=== PATIENT | male | born 1945 | race Caucasian/White ===

== ENCOUNTER 2018-09-12 07:54 | Inpatient (IN) ==
--- NOTE | 2018-09-11 22:18 | Discharge Summary ---
<Alexandria Chong L - Last Filed: 09/12/18 14:40> Orders not resulted at time of discharge: Pending orders 09/12/18 00:01 XR shoulder complete LT [XR] Routine H/H [Hemoglobin and Hematocrit] [HEME] Routine Date of Encounter: 09/12/18 Time of Encounter: 14:42 - Discharge Diagnosis (1) Status post reverse total arthroplasty of left shoulder Priority: Primary Status: Acute Comments: Opsite placed. Keep dressing intact until first follow up appointment. If > 50% saturated, notify office, remove dressing and place appropriate dressing back in place. Leave Zipline intact. Opsite dressing is water resistant, not water- proof. OK to shower, but do not get dressing wet. PT/OT. NWB to affected upper extremity. Follow Shoulder Precautions x 6 weeks. Stay in brace during activity and at night. Remove brace during exercises. ICE and elevate extremity frequently throughout the day. (2) Rotator cuff arthropathy of left shoulder Priority: Primary Status: Acute (3) CAD (coronary artery disease) of artery bypass graft Priority: Secondary Status: Chronic Qualifiers: [place] vs. transplanted heart: unspecified whether [place] or transplanted heart Associated angina: angina presence unspecified Qualified Code(s): I25.810 - Atherosclerosis of coronary artery bypass graft(s) without angina pectoris (4) HLD (hyperlipidemia) Priority: Secondary Status: Chronic Qualifiers: Hyperlipidemia type: unspecified Qualified Code(s): E78.5 - Hyperlipidemia, unspecified (5) HTN (hypertension) Priority: Secondary Status: Chronic Qualifiers: Hypertension type: essential hypertension Qualified Code(s): I10 - Essential (primary) hypertension (6) LBBB (left bundle branch block) Priority: Secondary Status: Chronic - Hospital Course Hospital course: Mr. Garcia is a 73 year old male s/p Left Reverse Spencer TSR. Vitals and labs reviewed: Short CBC 09/12/18 Range/Units 11:46 Hgb 14.2 (12.9-16.9) g/dL Hct 42.1 (37.5-50.1) % Vital Signs Temp Pulse Resp BP Pulse Ox 09/12/18 13:07 96.4 F L 81 15 159/98 92 09/12/18 12:35 95.9 F L 71 16 148/91 93 09/12/18 12:05 68 14 154/95 93 09/12/18 11:49 72 14 146/88 93 09/12/18 11:38 97.3 F L 79 16 143/91 93 09/12/18 11:28 75 14 143/92 94 09/12/18 11:18 82 14 146/89 98 09/12/18 11:08 97.2 F L 82 14 134/90 99 09/12/18 09:39 70 18 148/92 96 09/12/18 09:22 72 150/92 96 09/12/18 09:06 69 16 171/99 98 09/12/18 08:24 98.7 F 67 18 147/81 95 Intake and Output 09/11/18 09/12/18 09/12/18 23:59 07:59 15:59 Intake Total 20 / 20 Output Total 50 / 50 Balance -30 / -30 Intake: IV Fluids 20 / 20 Ancef Syringe 2,000 MG/20 ML 2, 20 / 20 000 mg In 20 ml @ 200 mls/hr IVPB PREOP ONE Rx#:[id number] Output: Estimated Blood Loss 50 / 50 Other: Weight 89.358 kg 89.358 kg Patient Weight 09/12/18 23:59 Weight 89.358 kg Pain control: Adequate, nerve block intact Participating in PT. All questions and concerns addressed. Educated on use of incentive spirometer, ambulation, and hydration. Patient educated on post-operative restrictions and care. D/C plan: Home with OP. Stable - Time Spent with Patient Total time spent providing and/or coordinating discharge services: - Discharge Medications Home Medications: Metoprolol XL (24 HR) Succ [Toprol Xl] 50 mg PO QPM 02/03/16 [History] Atorvastatin [Lipitor] 40 mg PO QPM 08/25/17 [History] Meloxicam 7.5 mg PO QPM 08/25/17 [History] OxyCODONE Immed Rel [Roxicodone 5 MG] 5 mg PO Q6HR PRN 7 Days #28 tablet 09/11/18 [Rx] Allergies/Adverse Reactions: Allergy/AdvReac Type Severity Reaction Status Date / Time No Known Allergies Allergy Verified 09/12/18 08:48 Primary care physician: PCP NONE - Patient Status Disposition: Home, Self-Care Condition: Good Functional capacity at discharge: independent ambulation Overall status at discharge: patient is progressing back to baseline - Discharge Instructions Instructions: Joint Replacement Surgery (DC) Follow Up With: Alexandria Chong PAC [Physician Computer Training Specialist] - 09/22/18 8:30 am NONE,PCP [Primary Care Provider] - Additional Instructions: Discharge Instructions: Total Shoulder Please call [facility] ([phone]), your Primary Care Physician, or report to the Emergency Room if you have any of the following symptoms: Nausea, vomiting, fever greater that 101.5, swelling, chest pain, shortness of breath, increased pain/redness/drainage/odor for your incision site, numbness/tingling, or any other concerning symptoms. ACTIVITY: Always keep your arm in the sling. Do not raise your arm away from your body. Do not use your arm to help with getting in or out of bed. No weight bearing permitted. Only perform those exercises given to you by your therapist. Incentive Spirometer 10 times an hour. MEDICATIONS: Upon discharge resume your home medications. Take all the medications as prescribed. Take a stool softener if taking narcotic pain medications. Stool softeners are only effective if you drink enough fluids. Drink 6-8 glass of water or fluids a day, unless this is not allowed for another health problem. Despite using stool softeners, if you haven't had a bowel movement in 3 days, please switch to a gentle laxative. Gentle laxatives are sold over the counter. You should have a bowel movement within 24 hours, if not call the office. You will be discharged from the hospital with a prescription for pain medication. You are encouraged to decrease the use of narcotic pain medication as tolerated. Should you require a refill, please call the office. [facility] prescribes narcotic pain medication for only 4-6 weeks after surgery. If you require pain medication beyond this time period, you may be referred to your Primary Care Physician or to the Pain Clinic for further evaluation. Plan ahead for refills on pain medication as many narcotics either need to be picked up at the office or mailed. It is best to call 48-72 hours in advance of needing a prescription refill so you don't run out of medication. To help control the post-operative pain, you may take NSAIDs (Aleve,Advil, Motrin, Ibuprofen, Naprosyn) or Tylenol as prescribed on the bottle in addition to the pain medication. WOUND CARE: Leave the dressing on for 7-10 days. You may change the dressing if it becomes saturated greater than 50%. Do not get the dressing wet at anytime. Wash your hands with antibacterial soap, rinse and dry prior to any wound care. If you have joni the visiting nurse or rehab facility can remove the stapes 10-14 days after surgery and place steri-strips across the wound. Leave the steri-strips in place until they fall off on their own. You may let water from the shower run on top of the steri-strips. If you do not have a visiting nurse or rehab facility, you will need to return to the office at 10-14 days for the joni to be removed. If you have itching or redness around the dressing call the office. FOLLOW-UP: Please follow up with your surgeon in the orthopedic clinic, as scheduled - Diet and Activity Activity: as per physical therapy <Lisa Carpenter - Last Filed: 09/13/18 13:13> Orders not resulted at time of discharge: Pending orders 09/12/18 08:40 US anesthesia pain block [US] Routine 09/12/18 10:37 Surgical Pathology [PTH] Routine - Discharge Diagnosis (1) Rotator cuff arthropathy of left shoulder Priority: Primary Status: Acute (2) Status post reverse total arthroplasty of left shoulder Priority: Primary Status: Acute (3) Status post total left knee replacement Priority: Secondary Status: Acute (4) Arthritis of knee Priority: Secondary Status: Chronic (5) Arthritis of left knee Priority: Secondary Status: Chronic (6) CAD (coronary artery disease) of artery bypass graft Priority: Secondary Status: Chronic Qualifiers: [place] vs. transplanted heart: unspecified whether [place] or transplanted heart Associated angina: angina presence unspecified Qualified Code(s): I25.810 - Atherosclerosis of coronary artery bypass graft(s) without angina pectoris (7) HLD (hyperlipidemia) Priority: Secondary Status: Chronic Qualifiers: Hyperlipidemia type: unspecified Qualified Code(s): E78.5 - Hyperlipidemia, unspecified (8) HTN (hypertension) Priority: Secondary Status: Chronic Qualifiers: Hypertension type: essential hypertension Qualified Code(s): I10 - Essential (primary) hypertension (9) LBBB (left bundle branch block) Priority: Secondary Status: Chronic - Hospital Course Hospital course: Mr. Garcia is a 73 year old male s/p Left Reverse Spencer TSR 09/12/18. He had an uneventful hospital course and was discharged by Dr. Walker on day of surgery. He was stable at time of discharge. - Time Spent with Patient Total time spent providing and/or coordinating discharge services: Date of admission: 09/12/18 11:42 Primary care physician: PCP NONE Consults: 09/12/18 12:05 Consult to Occupational Therapy [CONS] Routine Comment: post shoulder surgery Reason for Consult: post shoulder surgery Does patient have active BEDREST order?: No Is patient medically & hemodynamically stable?: Yes RT Post Op Consult [CONS] Routine 09/12/18 12:17 Consult to Scenic Designer [CONS] Routine Reason for SW Consult: s/p L TSR reverse Discharging clinician: Cabrera Walker Anticipated date of discharge: 09/12/18 Labs on day of discharge: Vital Signs Temp Pulse Resp BP Pulse Ox 09/12/18 15:40 97.9 F 83 17 148/83 93 09/12/18 14:10 96.5 F L 83 14 154/93 94 - Impressions ITS Impressions Shoulder X-Ray 09/12/18 00:01 IMPRESSION: Reversed left total shoulder arthroplasty with expected postsurgical changes. No acute complication. D/ / Humberto Roberson MD / Humberto Roberson MD Interpreting Provider: Humberto Roberson MD - Patient Status Functional capacity at discharge: independent ambulation Overall status at discharge: patient is progressing back to baseline - Diet and Activity Activity: as per physical therapy Diet: advance to your usual diet
[2018-09-12] MEDS ORDERED: Famotidine 20 MG/2 ML VIAL IVP ONE (08:17)
[2018-09-12] MEDS ORDERED: Pregabalin 75 MG CAPSULE PO ONE (08:18)
[2018-09-12] MEDS ORDERED: Acetaminophen IV 1,000 MG/100 ML INFUS..BTL IVPB ONE (08:18)
--- NOTE | 2018-09-12 08:23 | Anesthesia Evaluation PreOp ---
Date of Encounter: 09/12/18 Time of Encounter: 08:21 - Past History Planned Operation: L-reverse TSR Cardiac History: HTN, Hyperlipidemia, Cardiac Stent (stents x 1) Pulmonary History: Denies Any Significant HX DINING CAR CONDUCTOR History: Denies Any Significant HX Other Medical History: Denies Any Significant HX Anesthesia History: No Prior Anesthetic Complications, Past Anesthesia (Katie, cardiac stents x 2, B-knee scopes, CTR, R-TKR, L-elbow, L-TKR 08/2017) Alcohol Use: none Drug use: none Medications and Allergies Metoprolol XL (24 HR) Succ [Toprol Xl] 50 mg PO QPM 02/03/16 [History] Aspirin Enteric Coated [Aspirin EC] 81 mg PO DAILY 08/25/17 [History] Atorvastatin [Lipitor] 40 mg PO QPM 08/25/17 [History] Ferrous Sulfate 325 mg PO DAILY 08/25/17 [History] Meloxicam 7.5 mg PO QPM 08/25/17 [History] OxyCODONE Immed Rel [Roxicodone 5 MG] 5 mg PO Q6HR PRN 7 Days #28 tablet 09/11/18 [Rx] Allergy/AdvReac Type Severity Reaction Status Date / Time No Known Allergies Allergy Verified 09/05/18 11:06 - Meds/Allergy Pre-op Review Medications Reviewed: Yes Allergies Reviewed: Yes Beta Blockers on Current Med List: Yes (Metoprolol) If Beta Blockers taken, Date/Time (Last Dose taken): 09/12/2018 @ 0855 Anesthesia Results - Labs Laboratory Tests 09/05/18 09/05/18 09/05/18 11:06 11:06 11:06 WBC 5.4 Hgb 15.2 Hct 46.2 Plt Count 177 PT 11.7 INR 1.0 Sodium 137 Potassium 4.4 Chloride 102 Carbon Dioxide 29 Creatinine 1.00 Est GFR (Non-Af Amer) > 60 - Imaging EKG: report reviewed (78bpm - SINUS RHYTHM LEFT BUNDLE BRANCH BLOCK Electronically Signed On 08-19-2017 21:42:52 EDT by Brock Simpson MD) Anesthesia Exam O2 Sat Height 1.75 m Weight 89.358 kg O2 Sat by Pulse Oximetry 95 Vital Signs Temp Pulse Resp BP Pulse Ox 98.7 F 67 18 147/81 95 09/12/18 08:24 09/12/18 08:24 09/12/18 08:24 09/12/18 08:24 09/12/18 08:24 Height: 5'9" Weight: 197# BMI = 29 NPO (# of Hours): MNoc - HEENT Pupil (Motor): Pupils equal, EOMI Mallampati: III Teeth: Normal Oral Opening: Greater than 3 - DINING CAR CONDUCTOR LOC: Oriented DINING CAR CONDUCTOR Motor: Normal RUE, Normal LUE, Normal RLE, Normal LLE, Normal Face DINING CAR CONDUCTOR Sensory: Normal: RUE, LUE, RLE, LLE, Face - Cardiac Rhythm: Regular Murmur: None - Pulmonary Breath Sounds: bilateral Clear Respiratory Effort: Symmetrical Anesthesia Assess/Plan ASA Score: 3 (CAD, HTN, Chol, Arthritis,) Modified [place] Scale for Level of Consciousness: Cooperative, oriented, and tranquil Anesthetic Plan: General, Regional Monitoring Plan: Standard Monitors Recovery Plan: PACU Anes Supervising Prov Stmt: Pt seen/evaluated, R&B discussed, questions answered and consent obtained. Cal Mitchell MD
[2018-09-12] MEDS ORDERED: CeFAZolin Syr 2,000MG/20 ML 2,000 MG/20 ML SYRINGE IVPB ONE (08:31)
[2018-09-12] MEDS ORDERED: Bupivacaine/Clonidine Syringe 1 EACH SYRINGE ONE (08:41)
--- NOTE | 2018-09-12 08:43 | History & Physical Report ---
Date of Encounter: 09/12/18 Time of Encounter: 08:43 24 Hour HP Update - Instructions Instructions: If the History and Physical is less than 30 days old and was completed prior to A.M. admission and or procedure and has NOT been updated on calendar day of procedure please complete this update prior to performing procedure. - Update Patient reports changes in Medical Condition: No Changes in examination, assessment, or condition: No Changes in Medication: No Preop tests/diagnostics Reviewed: Yes Surgery Remains Indicated: Yes Consent for Planned Operative Procedure(s) Verified: Yes - Pre-Operative Checklist Preoperative Checklist Indicated: No Prophylactic Antibiotic Ordered: Yes Is VTE Prophylaxis Indicated?: Yes
[2018-09-12] MEDS ORDERED: Ringers Solution, Lactated 1,000 ML IVC SCH ×2 (08:45→12:05)
[2018-09-12] MEDS ORDERED: *HR* FentaNYL (PF) 100 MCG/2 ML VIAL ONE (08:46)
[2018-09-12] MEDS ORDERED: *HR* Propofol 200 MG/20 ML VIAL IVP ONE (08:46)
[2018-09-12] MEDS ORDERED: *HR* Midazolam HCl 2 MG/2 ML VIAL ONE (08:46)
[2018-09-12] MEDS ORDERED: *HR* OxyCODONE Immed Rel 5 MG TABLET PO PRN ×2 (08:50→12:05)
[2018-09-12] MEDS ORDERED: *HR* Promethazine 25 MG/ML VIAL IVP PRN (08:50)
[2018-09-12] MEDS ORDERED: *HR* HYDROmorphone (PF) 1 MG/ML SYRINGE IVP PRN (08:50)
[2018-09-12] MEDS ORDERED: Metoprolol XL (24 HR) Succ 50 MG TAB.ER.24H PO ONE (09:00)
--- NOTE | 2018-09-12 09:33 | Anesthesia Procedures ---
Date of Encounter: 09/12/18 Time of Encounter: Procedures: Anesthesia - Nerve Block Procedure Date: 09/12/18 Time: Surgical Procedure: left shoulder arthroscopy Checklist: Correct Patient Identifier, Correct procedure, History checked Correct side: Left Monitor Applied: BP, Pulse Oximetry Supplemental Oxygen via Nasal Cannula (L/min): 2 Sedation: Versed (mg): 2 Sedation: Fentanyl (mcg): 50 Indication: Post Op Analgesia Pre-op Neuro Deficits: No Catheter placed: No Sterile Technique: Yes Ultrasound used: Yes Anatomy identified: Yes Visual spread of Local: Yes Neuro Stimulation: No Blood on Needle Aspiration: No Smooth Injection of Local: No Pain with Injection of Local: No Prep: Chlorhexadine Needle: 22 x 50 mm Stimuplex Local: 0.25% Bupivicaine w/Clonidine 20 mcg/cc, Ropivacaine Volume (cc): 50 Number of Attempts: 1 Complications: None/effective block Vitals: vss though procedure, block per request
[2018-09-12] MEDS ORDERED: Ethanol\\Acetic Acid\\Na Ace\\Ben 1,000 ML IRRIG.SOLN IR ONE (09:41)
[2018-09-12] MEDS ORDERED: Ondansetron 4 MG/2 ML VIAL ONE (10:26)
[2018-09-12] MEDS ORDERED: *HR* Rocuronium Bromide 50 MG/5 ML VIAL ONE (10:26)
[2018-09-12] MEDS ORDERED: Dexamethasone 4 MG/ML VIAL ONE (10:26)
[2018-09-12] MEDS ORDERED: Lidocaine -MPF 4% 5 ML AMPUL ONE (10:26)
[2018-09-12] MEDS ORDERED: Lidocaine -MPF 2% 2 ML VIAL ONE (10:26)
[2018-09-12] MEDS ORDERED: *HR* PHENYLEPHRINE 1,000 MCG/10 ML SYRINGE IVP ONE (10:26)
[2018-09-12] MEDS ORDERED: *HR* Succinylcholine 200 MG/10 ML VIAL IVP ONE (10:26)
--- NOTE | 2018-09-12 10:47 | Orthopedic Operative Note ---
Date of procedure: 09/12/18 Pre-op diagnosis: Left shoulder cuff tear arthropathy Post-op diagnosis: same Procedure: Procedure: Total Shoulder Replacment Reverse, left Estimated blood loss: 50 cc Hardware: Metal and polyethylene replacement: Arthrex 24, +2 , 30 mm screw glenoid baseplate, 2 4.5 screws. 2 5.5 screw, 42+4 glenosphere, 13 apex humeral stem, poly insert 6 Exam Under anesthesia: Full motion no instability Procedural Notes: Irreparable tear supraspinatus tendon. Operative procedure: The patient was brought to the operating room and placed on the operating room table. After general anesthesia was administered the operative shoulder was examined. Findings were noted. The patient was placed in the modified beachchair position. All pressure points were padded appropriately. And the head was stabilized in the neutral position. The operative extremity was prepped and draped in the sterile surgical fashion. The patient received IV antibiotics prior to skin incision. A standard deltopectoral approach was made to the operative shoulder. Incision was made to the skin and subcutaneous tissue,hemo stasis was obtained with Bovie cautery. Using careful blunt dissection the cephalic vein was identified and mobilized medially. The deltopectoral interval was developed and the clavipectoral fascia was incised. The subscap was released off the lesser tuberosity and tagged with #2 FiberWire suture subscap was irreparable. The humerus was dislocated patient noted to have irreparable tear supraspinatus tendon, and the humeral cut was made along the anatomic neck. Anterior and posterior Bankart retractors were placed to expose the glenoid. The glenoid guide was seated and the centering hole was made. It was reamed with the appropriate reamer. The 24, +2, 30 mm screw, baseplate was seated and secured with (2) 4.5 screws and 2 5.5 screw. The baseplate was irrigated and dried and the 42+4 Glenosphere was seated and secured with the Schulz taper. The Schulz taper was tested and found to be secure the humerus was redislocated and prepared with the diaphyseal reamers, followed by a broaching process up to the appropriate size 13 apex in the patient's anatomic version. The metaphyseal reamer was then utilized. Trial reduction found the shoulder to be relocatable. Trial components were removed and 13 apex stem was impacted in place in the patient's anatomic version. Trial reduction found the shoulder to be relocatable and stable with the appropriate 6 Dorie. Trial component was removed and the real implant was seated and secured the shoulder was reduced. The shoulder had excellent motion and excellent stability and no evidence of dislocation. The deep tissue was irrigated with pulse irrigation. The PA close the shoulder. The deltopectoral interval was closed with a running #1 PDS suture, subcutaneous tissue was irrigated and closed with 0 PDS suture, the skin was closed with Dermabond. The patient was placed in a sterile dressing, abduction brace and extubated. The patient was then transferred to the recovery room in stable condition. Anesthesia: GETArya Surgeon: Cabrera Walker Was there an materials assistant present: Yes Position Classification Specialist: Alexandria Chong Estimated blood loss (cc): 50 Condition: stable Disposition: PACU
--- NOTE | 2018-09-12 11:40 | Anesthesia Evaluation Post Op ---
Date of Encounter: 09/12/18 Time of Encounter: 11:38 - Vital Signs Vital Signs: Vital Signs/O2 Sat, Most Current Temp Pulse Resp BP Pulse Ox 97.2 F L 75 14 143/92 94 09/12/18 11:08 09/12/18 11:28 09/12/18 11:28 09/12/18 11:28 09/12/18 11:28 - Lungs Lungs: Clear Ascult./Percussion - Airway Airway: Non-obstructed - Cardiovascular Regular Rate - Mental Status Mental Status: Alert & Oriented, Answers Appropriately - Pain Pain Scale: 3 (burning) Pain Scale used: Numeric (1 - 10) - Nausea Vomiting Nausea Vomiting: Not Present - Hydration Hydration: NPO - Discharge PostOp Status: Transfer Patient to floor (awake, VSS, minimal pain, no anesthetic complications)
[2018-09-12] MEDS ORDERED: Sennosides 8.6 MG TABLET PO PRN (12:05)
[2018-09-12] MEDS ORDERED: traMADol 50 MG TABLET PO PRN (12:05)
[2018-09-12] MEDS ORDERED: Temazepam 15 MG CAPSULE PO PRN (12:05)
[2018-09-12] MEDS ORDERED: Ondansetron 4 MG/2 ML VIAL IVP PRN (12:05)
[2018-09-12] MEDS ORDERED: MOM Conc 10 ML UD.LIQ PO PRN (12:05)
[2018-09-12] MEDS ORDERED: *HR* OxyCODONE/APAP 5/325 TABLET PO PRN (12:05)
[2018-09-12] MEDS ORDERED: Naloxone 0.4 MG/ML INJ IVP PRN (12:05)
[2018-09-12 12:19] LABS: Hematocrit 42.1 % (37.5-50.1); Hemoglobin 14.2 g/dL (12.9-16.9)
[2018-09-12 15:54] VITALS: BP 148/83
[2018-09-12] MEDS ORDERED: Metoprolol XL (24 HR) Succ 50 MG TAB.ER.24H PO SCH (18:00)
[2018-09-12] MEDS ORDERED: *HR* Enoxaparin 30 MG/0.3 ML SYRINGE SQ SCH ×2 (18:00)
== END 2018-09-12 19:07 | disposition home or self-care (01) | DRG 483 ==
LOC: SAMDAY 07:54 → 3NENU 11:42
PROVIDERS: ADMIT Orthopaedic Surgery; ATTEND Orthopaedic Surgery

== ENCOUNTER 2019-08-07 06:10 | Inpatient (IN) ==
[2019-08-07] MEDS ORDERED: CeFAZolin Syr 2,000MG/20 ML 2,000 MG/20 ML SYRINGE IVPB ONE (06:28)
--- NOTE | 2019-08-07 06:46 | History & Physical Report ---
Date of Encounter: 08/07/19 Time of Encounter: 06:45 24 Hour HP Update - Instructions Instructions: If the History and Physical is less than 30 days old and was completed prior to A.M. admission and or procedure and has NOT been updated on calendar day of procedure please complete this update prior to performing procedure. - Update Patient reports changes in Medical Condition: No Changes in examination, assessment, or condition: No Changes in Medication: No Preop tests/diagnostics Reviewed: Yes Surgery Remains Indicated: Yes Consent for Planned Operative Procedure(s) Verified: Yes - Pre-Operative Checklist Preoperative Checklist Indicated: No Prophylactic Antibiotic Ordered: Yes Is VTE Prophylaxis Indicated?: Yes
[2019-08-07] MEDS ORDERED: Lidocaine -MPF 2% 2 ML VIAL ONE (07:19)
[2019-08-07] MEDS ORDERED: Ethanol\\Acetic Acid\\Na Ace\\Ben 1,000 ML IRRIG.SOLN IR ONE (07:28)
[2019-08-07] MEDS: Ringers Solution, Lactated 1,000 ML IVC SCH ×2 (07:31→09:41)
[2019-08-07] MEDS ORDERED: *HR* FentaNYL (PF) 100 MCG/2 ML VIAL ONE (07:33)
[2019-08-07] MEDS ORDERED: *HR* Propofol 200 MG/20 ML VIAL IVP ONE (07:34)
[2019-08-07] MEDS ORDERED: *HR* Midazolam HCl 2 MG/2 ML VIAL ONE (07:34)
[2019-08-07] MEDS ORDERED: *HR* Succinylcholine 200 MG/10 ML VIAL IVP ONE (07:40)
[2019-08-07] MEDS ORDERED: *HR* Rocuronium Bromide 50 MG/5 ML VIAL ONE (07:40)
[2019-08-07] MEDS ORDERED: Lidocaine HCL 4 ML Topical Solution (Laryng-O-Jet Kit Sterile Pak) TP ONE (07:41)
[2019-08-07] MEDS ORDERED: Bupivacaine/EPI 1:200k 0.5%PF 30 ML VIAL ONE (07:43)
[2019-08-07] MEDS ORDERED: MethylPREDNISolone Acet(DEPOT) 80 MG/ML VIAL ONE (07:43)
[2019-08-07] MEDS ORDERED: Bupivacaine/EPI 1:200k 0.5%PF 10 ML VIAL ONE (07:44)
--- NOTE | 2019-08-07 07:45 | Anesthesia Evaluation PreOp ---
Date of Encounter: 08/07/19 Time of Encounter: 07:42 - Past History Planned Operation: Right Total Shoulder Cardiac History: HTN, Hyperlipidemia, Cardiac Stent (strent x 1 in 2001) Pulmonary History: Denies Any Significant HX QUALITY ASSURANCE ENGINEER History: Denies Any Significant HX Other Medical History: Denies Any Significant HX Anesthesia History: No Prior Anesthetic Complications, Past Anesthesia Alcohol Use: none Drug use: none Medications and Allergies Metoprolol XL (24 HR) Succ [Toprol Xl] 50 mg PO DAILY 02/03/16 [History] Atorvastatin [Lipitor] 40 mg PO DAILY 08/25/17 [History] Aspirin [Lo-Dose Aspirin EC] 81 mg PO DAILY 08/07/19 [History] Cetirizine HCl [Zyrtec] 10 mg PO DAILY PRN 08/07/19 [History] Allergy/AdvReac Type Severity Reaction Status Date / Time No Known Allergies Allergy Verified 08/07/19 07:11 - Meds/Allergy Pre-op Review Medications Reviewed: Yes Allergies Reviewed: Yes Beta Blockers on Current Med List: Yes If Beta Blockers taken, Date/Time (Last Dose taken): 08/07/2019 at 0400 Anesthesia Results - Labs Laboratory Tests 07/19/19 07/19/19 07/19/19 09:48 09:48 09:48 WBC 5.1 Hgb 15.0 Hct 44.5 Plt Count 174 PT 12.2 H INR 1.1 APTT 31.8 Sodium 134 L Potassium 4.2 BUN 8 Creatinine 0.91 - Imaging EKG: report reviewed (08/17/2017 SINUS RHYTHM LEFT BUNDLE BRANCH BLOCK) Anesthesia Exam O2 Sat Height 1.8 m Height 1.8 m Weight 86.183 kg Weight 86.183 kg O2 Sat by Pulse Oximetry 97 Vital Signs Temp Pulse Resp BP Pulse Ox 98.5 F 62 18 151/78 97 08/07/19 06:45 08/07/19 06:45 08/07/19 06:45 08/07/19 06:45 08/07/19 06:45 Height: 5'11'' Weight: 190 lbs NPO (# of Hours): 8 Pain Scale: 0 Pain Scale Used: Numeric (1 - 10) - HEENT Pupil (Motor): EOMI Mallampati: III Teeth: Normal Oral Opening: Greater than 3 - QUALITY ASSURANCE ENGINEER LOC: Oriented QUALITY ASSURANCE ENGINEER Motor: Normal RUE, Normal LUE, Normal RLE, Normal LLE, Normal Face QUALITY ASSURANCE ENGINEER Sensory: Normal: RUE, LUE, RLE, LLE, Face - Cardiac Rhythm: Regular Murmur: None - Pulmonary Breath Sounds: bilateral Clear Respiratory Effort: Symmetrical Anesthesia Assess/Plan ASA Score: 3 Level of consciousness: Cooperative, Oriented, Tranquil Anesthetic Plan: General, Regional Nerve Block Regional Nerve Block Plan: Supraclavicular Monitoring Plan: Standard Monitors Recovery Plan: PACU
[2019-08-07] MEDS ORDERED: Ondansetron 4 MG/2 ML VIAL IVP ONE (07:54)
[2019-08-07] MEDS ORDERED: *HR* OxyCODONE Immed Rel 5 MG TABLET PO PRN ×2 (07:54→10:44)
[2019-08-07] MEDS ORDERED: *HR* HYDROmorphone (PF) 1 MG/ML SYRINGE IVP PRN (07:54)
[2019-08-07] MEDS ORDERED: Ropivacaine/PF 0.5% 30 ML VIAL ONE (07:55)
[2019-08-07] MEDS ORDERED: ROPIVACAINE/PF/NS 0.25% 1 EACH SYRINGE INTRAART ONE (07:55)
[2019-08-07] MEDS ORDERED: Ondansetron 4 MG/2 ML VIAL ONE (08:31)
[2019-08-07] MEDS ORDERED: EPHEDrine 50 MG/ML VIAL ONE (08:37)
--- NOTE | 2019-08-07 08:41 | Anesthesia Procedures ---
Date of Encounter: 08/07/19 Time of Encounter: 08:05 Procedures: Anesthesia - Nerve Block Procedure Date: 08/07/19 Time: 08:05 Allergies/Adv Reactions: NKDA Pre-op Diagnosis: R shoulder arthropathy Surgical Procedure: R total shoulder arthroplasty Checklist: Correct Patient Identifier, Correct procedure, History checked Correct side: Right Blood Thinner: No Monitor Applied: EKG, BP, Pulse Oximetry Supplemental Oxygen via Nasal Cannula (L/min): 2 Sedation: Versed (mg): 1 Sedation: Fentanyl (mcg): 100 Indication: Post Op Analgesia Pre-op Neuro Deficits: No Block Type: Supraclavicular, Other (SC and ICB) Catheter placed: No Sterile Technique: Yes Ultrasound used: Yes Anatomy identified: Yes Visual spread of Local: Yes Neuro Stimulation: No Blood on Needle Aspiration: No Smooth Injection of Local: Yes Pain with Injection of Local: No Prep: Chlorhexadine Needle: 22 x 50 mm Stimuplex Local: Ropivacaine (Supraclavicular 25ml, SC and ICB 5ml) Volume (cc): 30 Number of Attempts: 1 Complications: None/effective block Vitals: Last Vital Signs Temp 98.5 F 08/07/19 06:45 Pulse 58 08/07/19 08:13 Resp 18 08/07/19 06:45 BP 128/76 08/07/19 08:13 Pulse Ox 95 08/07/19 08:13 Comments: Decadron 8mg added to Ropivicaine 0.5%
--- NOTE | 2019-08-07 09:07 | Orthopedic Operative Note ---
Date of procedure: 08/07/19 Pre-op diagnosis: Left shoulder pain, right shoulder cuff tear arthropathy Post-op diagnosis: same Procedure: Procedure: Total Shoulder Replacment Reverse, left Estimated blood loss: 50 cc Hardware: Metal and polyethylene replacement: Arthrex 28, +4 , 30 mm post glenoid baseplate, 4 locking 5.5 screw, 42+4 glenosphere, 10 [place] humeral stem, poly insert 3 and 9 metal Exam Under anesthesia: Full motion no instability Procedural Notes: Irreparable rotator cuff tear Operative procedure: The patient was brought to the operating room and placed on the operating room table. After general anesthesia was administered the operative shoulder was e xamined. Findings were noted. Patient underwent a sterile injection into the left shoulder with Marcaine and Depo-Medrol. The patient was placed in the modified beachchair position. All pressure points were padded appropriately. And the head was stabilized in the neutral position. The operative extremity was prepped and draped in the sterile surgical fashion. The patient received IV antibiotics prior to skin incision. A standard deltopectoral approach was made to the operative shoulder. Incision was made to the skin and subcutaneous tissue,hemo stasis was obtained with Bovie cautery. Using careful blunt dissection the cephalic vein was identified and mobilized medially. The deltopectoral interval was developed and the clavipectoral fascia was incised. The subscap was released off the lesser tuberosity and tagged with #2 FiberWire suture subscap was irreparable. The humerus was dislocated patient noted to have irreparable tear supraspinatus tendon, and the humeral cut was made along the anatomic neck. Anterior and posterior Bankart retractors were placed to expose the glenoid. The glenoid guide was seated and the centering hole was made. It was reamed with the appropriate reamer. The baseplate was seated and secured with 4 locking 5.5 screw. The baseplate was irrigated and dried and the [place] was seated and secured with the Schulz taper. The Schulz taper was tested and found to be secure, glenosphere fixation was secondarily secured with the central screw. The humerus was redislocated and prepared with the diaphyseal reamers, followed by a broaching process up to the appropriate size [place] stem in the patient's anatomic version. The metaphyseal reamer was then utilized. Trial reduction found the shoulder to be relocatable. Trial components were removed and the [place] stem was impacted in place in the patient's anatomic version. Trial reduction found the shoulder to be relocatable and stable with the appropriate 9 metal and 3 Dorie. Trial component was removed and the real implant was seated and secured the shoulder was reduced. The shoulder had excellent motion and excellent stability and no evidence of dislocation. The deep tissue was irrigated with pulse irrigation. The PA close the shoulder. The deltopectoral interval was closed with a running #1 PDS suture, subcutaneous tissue was irrigated and closed with 0 PDS suture, the skin was closed with Dermabond. The patient was placed in a sterile dressing, abduction brace and extubated. The patient was then transferred to the recovery room in stable condition. Anesthesia: GETA Surgeon: Cabrera Walker Was there an virtual office assistant present: Yes School Health Assistant: Brandon Marquez Estimated blood loss (cc): 50 Condition: stable Disposition: PACU
--- NOTE | 2019-08-07 10:08 | Anesthesia Evaluation Post Op ---
Date of Encounter: 08/07/19 Time of Encounter: 10:08 - Vital Signs Vital Signs: Vital Signs/O2 Sat, Most Current Temp Pulse Resp BP Pulse Ox 97.3 F L 65 14 142/73 95 08/07/19 09:51 08/07/19 09:51 08/07/19 09:51 08/07/19 09:51 08/07/19 09:51 - Lungs Lungs: Clear Ascult./Percussion - Airway Airway: Non-obstructed - Cardiovascular Regular Rate - Mental Status Mental Status: Alert & Oriented, Answers Appropriately - Pain Pain Scale: 5 Pain Scale used: Numeric (1 - 10) - Nausea Vomiting Nausea Vomiting: Not Present - Hydration Hydration: Ice chips, Has not voided - Discharge PostOp Status: Transfer Patient to floor
[2019-08-07 10:14] LABS: Hematocrit 37.1 % (37.5-50.1); Hemoglobin 12.3 g/dL (12.9-16.9)
[2019-08-07] MEDS ORDERED: Sennosides 8.6 MG TABLET PO PRN (10:44)
[2019-08-07] MEDS ORDERED: *HR* OxyCODONE/APAP 5/325 TABLET PO PRN (10:44)
[2019-08-07] MEDS ORDERED: Ondansetron 4 MG/2 ML VIAL IVP PRN (10:44)
[2019-08-07] MEDS ORDERED: traMADol 50 MG TABLET PO PRN (10:44)
[2019-08-07] MEDS ORDERED: Temazepam 15 MG CAPSULE PO PRN (10:44)
[2019-08-07] MEDS ORDERED: Metoprolol XL (24 HR) Succ 50 MG TAB.ER.24H PO SCH (10:44)
[2019-08-07] MEDS ORDERED: Naloxone 0.4 MG/ML INJ IVP PRN (10:44)
[2019-08-07] MEDS ORDERED: Loratadine 10 MG TABLET PO PRN (10:44)
[2019-08-07] MEDS ORDERED: MOM Conc 10 ML UD.LIQ PO PRN (10:44)
[2019-08-07] MEDS ORDERED: Aspirin Enteric Coated 81 MG Tablet PO SCH (10:44)
[2019-08-07] MEDS ORDERED: Ringers Solution, Lactated 1,000 ML IVC SCH (10:44)
[2019-08-07 13:41] VITALS: BP 135/72
--- NOTE | 2019-08-07 15:40 | Discharge Summary ---
Orders not resulted at time of discharge: Pending orders 08/07/19 09:10 Surgical Pathology [PTH] Routine Date of Encounter: 08/07/19 Time of Encounter: 16:21 - Discharge Diagnosis (1) Rotator cuff tear arthropathy of right shoulder Priority: Primary Status: Chronic (2) Status post total replacement of right shoulder Priority: Primary Status: Acute (3) CAD (coronary artery disease) Priority: Secondary Status: Chronic Qualifiers: Coronary Disease-Associated Artery/Lesion type: unspecified vessel or lesion type [place] vs. transplanted heart: unspecified whether [place] or transplanted heart Associated angina: angina presence unspecified Qualified Code(s): I25.10 - Atherosclerotic heart disease of [place] coronary artery without angina pectoris (4) History of coronary artery stent placement Priority: Secondary Status: Chronic (5) HLD (hyperlipidemia) Priority: Secondary Status: Chronic Qualifiers: Hyperlipidemia type: unspecified Qualified Code(s): E78.5 - Hyperlipidemia, unspecified (6) HTN (hypertension) Priority: Secondary Status: Chronic Qualifiers: Hypertension type: unspecified Qualified Code(s): I10 - Essential (primary) hypertension (7) LBBB (left bundle branch block) Priority: Secondary Status: Chronic - Hospital Course Hospital course: Mr. Garcia is a 74 year old male s/p right total shoulder replacement reverse and left shoulder injection 08/07/19 Patient seen at bedside. Spouse at bedside. A&Ox3 Dressing and incision c/d/i Block fully active with no sensation or motion to RUE. No calf tenderness, erythema, or warmth. Neurovascularly intact b/l LE. Labwork, vitals, and medications reviewed. Pain control: Adequate Participating in therapy. All questions and concerns addressed. Educated on use of incentive spirometer, ambulation, and hydration. Patient educated on post-operative restrictions and care. Remove abduction pillow on POD#1 Addressed: see above. The patient's postoperative course was uneventful. Progressed from intravenous analgesic needs to oral analgesic needs only. Remained neurovascularly intact and mobilized satisfactorily. All radiographic studies were satisfactory. Patient course and disposition discussed with Dr. Walker. Patient is discharged to home with plan for outpatient rehabilitation and outpatient orthopedic follow up has been arranged. - Time Spent with Patient Total time spent providing and/or coordinating discharge services: - Discharge Medications Prescriptions: New Docusate Sodium [Colace] 100 mg PO BID 5 Days #10 capsule Acetaminophen [Non-Aspirin Extra Strength] 500 mg PO Q6H PRN 7 Days #28 tablet PRN Reason: Mild To Moderate Pain OxyCODONE Immed Rel [Roxicodone 5 MG] 5 mg PO Q6HR PRN 5 Days #20 tablet PRN Reason: Severe Pain Continued Metoprolol XL (24 HR) Succ [Toprol Xl] 50 mg PO DAILY Atorvastatin [Lipitor] 40 mg PO DAILY Cetirizine HCl [Zyrtec] 10 mg PO DAILY PRN PRN Reason: Allergy Symptoms Aspirin [Lo-Dose Aspirin EC] 81 mg PO DAILY Home Medications: Metoprolol XL (24 HR) Succ [Toprol Xl] 50 mg PO DAILY 02/03/16 [History] Atorvastatin [Lipitor] 40 mg PO DAILY 08/25/17 [History] Acetaminophen [Non-Aspirin Extra Strength] 500 mg PO Q6H PRN 7 Days #28 tablet 08/07/19 [Rx] Aspirin [Lo-Dose Aspirin EC] 81 mg PO DAILY 08/07/19 [History] Cetirizine HCl [Zyrtec] 10 mg PO DAILY PRN 08/07/19 [History] Docusate Sodium [Colace] 100 mg PO BID 5 Days #10 capsule 08/07/19 [Rx] OxyCODONE Immed Rel [Roxicodone 5 MG] 5 mg PO Q6HR PRN 5 Days #20 tablet 08/07/19 [Rx] Allergies/Adverse Reactions: Allergy/AdvReac Type Severity Reaction Status Date / Time No Known Allergies Allergy Verified 08/07/19 07:11 Date of admission: 08/07/19 10:33 Primary care physician: Az Acuna Consults: 08/07/19 10:44 Consult to Occupational Therapy [CONS] Routine Comment: post shoulder surgery Reason for Consult: post shoulder surgery Does patient have active BEDREST order?: No Is patient medically & hemodynamically stable?: Yes Consult to Physical Therapy [CONS] Routine Comment: post shoulder surgery Reason for Consult: post shoulder surgery Does patient have active BEDREST order?: No Is patient medically & hemodynamically stable?: Yes Consult to [employer] [CONS] Routine Reason for SW Consult: shoulder surgery RT Post Op Consult [CONS] Routine Discharging clinician: Cabrera Walker Anticipated date of discharge: 08/07/19 - VTE Documentation of Mechanical Device: Venous foot pump, device Labs on day of discharge: Labs from last 24 hours 08/07/19 01:00 Hgb 12.3 L Hct 37.1 L - Impressions ITS Impressions Shoulder X-Ray 08/07/19 09:46 IMPRESSION: Expected postsurgical changes from right reverse shoulder arthroplasty. D/ / Genoveva Mary MD / Genoveva Mary MD Interpreting Provider: Genoveva Mary MD - Patient Status Disposition: Home, Self-Care Condition: Good Functional capacity at discharge: independent ambulation Overall status at discharge: patient is progressing back to baseline - Discharge Instructions Follow Up With: Az Acuna DO [Primary Care Provider] - - Diet and Activity Activity: as per physical therapy Diet: advance to your usual diet
[2019-08-07] MEDS ORDERED: *HR* Enoxaparin 30 MG/0.3 ML SYRINGE SQ SCH ×2 (18:00)
== END 2019-08-07 17:55 | disposition home or self-care (01) | DRG 483 ==
LOC: SAMDAY 06:10 → 3NENU 10:33
PROVIDERS: ADMIT Orthopaedic Surgery; ATTEND Orthopaedic Surgery